=== PATIENT | female | born 1970 | race Caucasian/White ===

== ENCOUNTER 2020-11-11 13:44 | Emergency (ER) | payer OTHER ==
[~2020-11-11] VITALS: Ht 167.6 cm; Wt 79.4 kg
[2020-11-11 13:52] VITALS: BP 119/76
--- NOTE | 2020-11-11 13:58 | NUR ---
50 YEAR OLD FEMALE COMPLAINS OF HEADACHE, BODYACHE, AND FEVER X 5 DAYS. PT STATES THAT SHE HAS TAKEN 800MG TYLENOL AT 10AM FOR FEVER AND WAS 100.7 LAST NIGHT WITH CHILLS. PT AOX4, BREATHING EVEN AND UNLABORED, SKIN WARM AND DRY. BED IN LOWEST POSITION, LOCKED, BED RAIL UPX1. PMH - DM2, HTN ALLERGIES - NKA
[2020-11-11] MEDS ORDERED: KETOROLAC 60 MG/2 ML VIAL IM ONE (14:08)
[2020-11-11] MEDS ORDERED: KETOROLAC 30 MG/ML VIAL IM ONE (14:10)
--- NOTE | 2020-11-11 14:13 | NUR ---
NOVEL SWAB SENT TO LAB
[2020-11-11] MEDS ORDERED: IBUP-2213 PO (14:48)
[2020-11-11] MEDS ORDERED: PROM118S6 PO (14:48)
--- NOTE | 2020-11-11 14:51 | NUR ---
ATTEMPTED TO DISCHARGE PT BUT NOT INSIDE ROOM AND DID NOT NOTIFY STAFF IF SHE LEFT. MICHAEL NAVARRO AWARE
[2020-11-11 14:54] VITALS: BP 119/76
--- NOTE | 2020-11-11 14:54 | NUR ---
UNABLE TO FIND PT, PT LEFT WITHOUT DISCHARGE PAPERWORK. MICHAEL NAVARRO MADE AWARE
--- NOTE | 2020-11-13 14:37 | NUR ---
LATE ENTRY- Positive COVID-19 test results were received from lab. A copy of the test results were placed in infection control mailbox
== END 2020-11-11 14:54 | disposition home or self-care (01) ==
LOC: MED 13:44
DX: B34.9 Viral infection, unspecified (principal); E11.9 Type 2 diabetes mellitus without complications; I10 Essential (primary) hypertension; Z79.899 Other long term (current) drug therapy
CPT/HCPCS: 96372; 99283; J1885; U0003

== ENCOUNTER 2021-07-20 11:58 | Emergency (ER) | payer OTHER ==
[~2021-07-20] VITALS: Ht 170.2 cm; Wt 86.2 kg
[~2021-07-20 11:58] MED LIST: IBUP-2213 PO; PROM118S6 PO
[2021-07-20 12:15] VITALS: BP 122/75
--- NOTE | 2021-07-20 12:15 | NUR ---
51 Y/O F C/O LOWER BACK SINCE YESTERDAY, BENT OVEVER AND HURT BACK NKDA PMD: DM, HTN
--- NOTE | 2021-07-20 12:15 | NUR ---
TO ER BED 2
[2021-07-20] MEDS ORDERED: ACET-8386 PO (12:58)
[2021-07-20] MEDS ORDERED: LID5T TP (12:58)
[2021-07-20] MEDS ORDERED: KETOROLAC 30 MG/ML VIAL IM ONE (13:00)
[2021-07-20 13:48] VITALS: BP 119/79
--- NOTE | 2021-07-20 13:48 | NUR ---
Patient discharged with v/s stable. Written and verbal after care instructions given and explained. Patient alert, oriented and verbalized understanding of instructions. Ambulatory with steady gait. All questions addressed prior to discharge. ID band removed. Patient advised to follow up with PMD. Rx of NORCO 5-325, LIDODERM PATCH given. Patient educated on indication of medication including possible reaction and side effects. Opportunity to ask questions provided and answered.
== END 2021-07-20 13:48 | disposition home or self-care (01) ==
LOC: MED 11:58
DX: S39.012A Strain of muscle, fascia and tendon of lower back, initial encounter (principal); E11.9 Type 2 diabetes mellitus without complications; I10 Essential (primary) hypertension; X58.XXXA Exposure to other specified factors, initial encounter; Y93.89 Activity, other specified; Y92.89 Other specified places as the place of occurrence of the external cause; Y99.8 Other external cause status
CPT/HCPCS: 81002; 81025; 96372; 99283; J1885